=== PATIENT | male | born 1990 | race Caucasian/White ===

== ENCOUNTER 2024-07-06 23:30 | Emergency (ER) | payer OTHER, SELFPAY ==
[2024-07-06 23:30] VITALS: BP 140/87; PULSE 79; RESP 18; TEMP 36.4; O2SAT 98; BMI 29.2
--- NOTE | 2024-07-07 00:54 | EX.ED.VIS.EY ---
HPI History of Present Illness Chief Complaint: Eye Problem Informant: patient Narrative Narrative: Patient is a 33-year-old male with no significant past medical history. 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 He states that after work yesterday he noticed that he had mild light sensitivity and slight redness. He states that as time passed the redness to both eyes worsened and he had increased tearing and increased light sensitivity. 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 He also denies any sensation of retained foreign body. He states there is no change in vision but with the persistent redness and tearing a concern for infection and comes in for evaluation. [facility] Home Medications ?Medication ?Instructions ?Recorded ?Last Taken ?Type multivitamin (Daily Multi-Vitamin 1 tab PO DAILY 07/06/24 Unknown History tablet) ciprofloxacin HCl 0.3 % eye drops 2 drp EACH EYE 4X/DAY 7 days #10 mL 07/07/24 Unknown Rx diclofenac sodium 0.1 % eye drops 1 drp EACH EYE 4X/DAY PRN pain 3 07/07/24 Unknown Rx days #5 mL Allergy/AdvReac Type Severity Reaction Status Date / Time No Known Allergies Allergy Verified 07/06/24 23:31 Social History Smoking Status: Unknown if ever smoked ROS ROS ED Constitutional Constitutional ED: Denies chills or fever(s) Eyes Eyes: Reports other Details: Positive eye redness and tearing ; Denies blurry vision, change in vision or diplopia ENT ENT ED: Denies sore throat Cardiovascular Cardiovascular: Denies chest pain Respiratory/Chest Respiratory/Chest: Denies cough or dyspnea Gastrointestinal Gastrointestinal: Denies abdominal pain, diarrhea, nausea or vomiting Genitourinary Genitourinary ED: Denies dysuria Musculoskeletal Musculoskeletal: Denies myalgias or neck pain Integumentary Denies rash Neurologic Neurologic: Denies headache(s) Hematologic/Lymphatic Hematologic/Lymphatic: Denies easy bleeding or easy bruising EXAM Physical Exam Const Vital Signs: 07/06/24 23:30 Temperature 97.6 F L Temperature Source Temporal Pulse Rate 79 Respiratory Rate 18 Blood Pressure 140/87 H Blood Pressure Mean 104 Pulse Ox 98 Oxygen Delivery Method Room Air Positive well nourished and well developed General Appearance ED: well developed HEENT HEENT Narrative: Normocephalic atraumatic Eyes PERRL and EOMs intact bilaterally Eyes Narrative: Pupils are equal reactive to light and accommodation and extraocular muscles are intact There is scleral injection bilaterally with increased tearing. No purulent discharge noted No thickening or inflammation of the bilateral conjunctiva present No external or internal hordeolum noted Upper lid was everted no retained foreign body No obvious corneal ulcer noted Neck supple Resp normal respiratory effort and clear to auscultation bilaterally Cardio regular rate and regular rhythm Extremity normal to inspection Neuro oriented x3, CN's II-XII intact bilaterally, moves all extremities and no sensory deficits noted Sensorium / Orientation: alert Motor Exam: strength 5/5 throughout Psych mental status grossly normal Skin no rashes or lesions noted and no wounds Lesions: no lesions Rashes: no rashes MDM MDM MDM Narrative Medical decision making narrative: Patient arrived to the ER hypertensive otherwise with stable vital. He reported essentially 1 day of increased eye redness and tearing and light sensitivity. Differential diagnosis for corneal ulcer versus viral versus bacterial versus allergic conjunctivitis versus UV keratitis versus corneal abrasion. Exam did not show any signs of ulcer or corneal abrasion and as he has bilateral redness with increased tearing I do feel this is most likely UV keratitis. I do not feel this is conjunctivitis as the patient does not have inflammation of his conjunctiva nor does he have purulent discharge and the fact that he is light sensitive also goes against conjunctivitis. 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 he will be placed on ciprofloxacin in order to ensure there is no secondary infection as he is a contact lens wear but as he does not have signs of globe injury or systemic infection there is no need for workup and he is otherwise safe for discharge History & Record Review Discussion w/independent historian: Patient Discharge Plan Triage Chief Complaint: Eye Problem ED Provider: Zheng Gibson Dx/Rx/DC Orders Clinical Impression: UV keratitis, Hypertension, Uses contact lenses Instructions: ED Conjunctivitis, Viral, ED Flash Burn to Eye Prescriptions: New ciprofloxacin HCl 0.3 % drops 2 drp EACH EYE 4X/DAY 7 Days Qty: 10 0RF diclofenac sodium 0.1 % drops 1 drp EACH EYE 4X/DAY PRN (Reason: pain) 3 Days Qty: 5 0RF No Action multivitamin [Daily Multi-Vitamin] Tablet 1 tab PO DAILY Stand Alone Forms: ED Work / School Excuse Primary Care Provider: Care Physician,No Primary Referrals: Chon Barrientos MD [Med Staff - Active Staff] - Care Physician,No Primary [Primary Care Provider] - Activity Restrictions/Additional Instructions: Please use the ciprofloxacin eyedrops to prevent infection and use the diclofenac eyedrops for pain control. Follow-up with ophthalmology if there is no improvement and return to the ER should you have any further concerns Print Language: Mexican Disposition Disposition: Home, Self Care Discharge Date/Time: 07/07/24 01:18
[2024-07-07] MEDS: Tetracaine 0.5% Ophthalmic Bottle 1 DRP EACH EYE (01:12)
== END 2024-07-07 01:18 | disposition home or self-care (01) ==
PROVIDERS: Emergency Provider Emergency Medicine; Visit Provider Emergency Medicine
DX: H16.133 Photokeratitis, bilateral (principal); I10 Essential (primary) hypertension; Z97.3 Presence of spectacles and contact lenses; Z79.899 Other long term (current) drug therapy
CPT/HCPCS: 99282

== ENCOUNTER 2025-01-02 13:26 | Emergency (ER) | payer OTHER, SELFPAY ==
[2025-01-02 13:26] VITALS: BP 164/91; PULSE 85; RESP 17; TEMP 36.3; O2SAT 98; BMI 29.9
--- NOTE | 2025-01-02 13:50 | ED.RN ---
ASKED THIS RN HOW LONG WAIT TIME IS. RN EXPLAINED SHE COULD NOT GIVE AN ACCURATE NUMBER SINCE ER ROOMING IS BASED ON PATIENT SEVERITY AND NOT TIME OF ARRIVAL. PT HAS LEFT DEPARTMENT
== END 2025-01-02 13:50 | disposition left against medical advice (07) ==
LOC: ED 13:51
DX: S09.90XA Unspecified injury of head, initial encounter (principal); W22.8XXA Striking against or struck by other objects, initial encounter; Z53.21 Procedure and treatment not carried out due to patient leaving prior to being seen by health care provider